=== PATIENT | female | born 1970 | race Caucasian/White ===

== ENCOUNTER 2019-07-14 06:23 | Day surgery (SDC) | payer OTHER ==
[2019-07-14] MEDS ORDERED: fentaNYL 100 MCG/2 ML SDV ONE (07:16)
[2019-07-14] MEDS ORDERED: Midazolam 1 MG/ML 2 ML SDV ONE (07:17)
[2019-07-14] MEDS ORDERED: Propofol 200 MG/20 ML SDV ONE (07:17)
[2019-07-14] MEDS ORDERED: Sodium Chloride 0.9% 1,000 ML IV SCH (07:30)
[2019-07-14] MEDS ORDERED: Ondansetron 4 MG/2 ML SDV ONE (07:46)
--- NOTE | 2019-07-14 13:33 | OR ---
DATE OF PROCEDURE: 07/14/2019 SURGEON: Pablito Todd MD PROCEDURE: Colonoscopy. FINDINGS: Normal colonoscopy. COMPLICATIONS: None. SOW MANAGER: None. PREOPERATIVE DIAGNOSIS: Screening colonoscopy. POSTOPERATIVE DIAGNOSIS: Screening colonoscopy. RISKS: Risks, benefits, alternatives, and limitations including, but not limited to, infection, bleeding, and perforation explained to the patient, who wished to proceed. PROCEDURE IN DETAIL: The patient was placed in left lateral decubitus position. Digital rectal exam was performed without abnormality. Scope was introduced and advanced atraumatically to the ileocecal valve. The scope was brought back through the ascending, transverse, descending colon, and retroflexed. No old or new blood. No masses. No polyps. No diverticulosis. No abnormalities on retroflexion. The patient tolerated the procedure well. Pablito Todd MD /[id number]
== END 2019-07-14 09:28 | disposition home or self-care (01) ==
LOC: JP.SDS 06:23
PROVIDERS: ATTEND Surgery
DX: Z12.11 Encounter for screening for malignant neoplasm of colon (principal); E66.9 Obesity, unspecified; Z68.35 Body mass index [BMI] 35.0-35.9, adult
CPT/HCPCS: 45378; J2250; J2405; J2704; J3010; J7030